=== PATIENT | male | born 1970 | race Caucasian/White ===

== ENCOUNTER 2018-06-18 20:53 | Emergency (ER) | payer SELFPAY ==
[2018-06-18] MEDS ORDERED: LIDOCAINE 1% INJ-PF (10 MG/ML) 30 ML SDV INJ ONE (22:38)
[2018-06-18] MEDS ORDERED: KETOROLAC TROMETHAMINE 60 MG/2 ML SDV IM ONE (22:41)
--- NOTE | 2018-06-18 22:42 | ER Document Report ---
ED Medical Screen (RME) - General Chief Complaint: Leg Swelling Stated Complaint: SWOLLEN SPOT ON LEG Time Seen by Provider: 06/18/18 22:29 Notes: Patient is a 47-year-old male presenting to the emergency department complaining of erythema and swelling noted to the lateral aspect of his distal left lower extremity. Patient states he noticed this on Monday morning states he was scratching at something on his lower leg. States on he presented to an urgent care and was put on Bactrim and mupirocin. States since taking the Bactrim and mupirocin he has not noticed that the redness or irritation has gotten worse but he has noted that it has not gotten better and he has noticed some swelling to the distal aspect of his left lower extremity. Patient states at urgent care they did take a culture of the discharge that was coming from the wound and it grew back MRSA. Patient denies that they did any sort of incision and drain at that time state there was already a small amount of discharge that the provider was able to culture. Physical exam: 6cm x10 cm area of erythema and fluctuance noted to the left distal lateral lower extremity. Small scab noted in the center of the erythema. I have greeted and performed a rapid initial assessment of this patient. A comprehensive ED assessment and evaluation of the patient, analysis of test results and completion of the medical decision making process will be conducted by additional ED providers. TRAVEL OUTSIDE OF THE [place] IN LAST 30 DAYS: No - Related Data Allergies/Adverse Reactions: Shellfish * [Shellfish] Allergy (Mild, Verified 08/29/15 21:21) VOMITING Past Medical History Renal/ Medical History: Reports: Hx Kidney Stones Past Surgical History: Reports: Hx Kidney (Renal Surgery) - kidney stone removed with stent placement to left kidney, Hx Orthopedic Surgery - Immunizations Immunizations up to date: Yes Hx Diphtheria, Pertussis, Tetanus Vaccination: Yes Doctor's Discharge - Discharge Referrals: TRINITY STARR MD [Primary Care Provider] - Follow up as needed
--- NOTE | 2018-06-19 00:25 | ER Document Report ---
ED Extremity Problem, Lower - General Chief Complaint: Leg Swelling Stated Complaint: SWOLLEN SPOT ON LEG Time Seen by Provider: 06/18/18 22:29 Notes: Patient is a 47-year-old male that comes to the emergency department for chief complaint of tender, red, swollen area over the left lower extremity. He states that initially he was scratching his leg, scratched the skin open, the area around it became red, this worsened, he was seen 5 days ago by urgent care , he states they expressed a little bit of purulent discharge from the center, cultured it, this was positive for MRSA, he was placed on Bactrim and Macrobid, no incision/drainage was performed. He denies fever/chills, nausea or vomiting , he is not a diabetic. He denies any other complaints. TRAVEL OUTSIDE OF THE [place] IN LAST 30 DAYS: No - Related Data Allergies/Adverse Reactions: Shellfish * [Shellfish] Allergy (Mild, Verified 08/29/15 21:21) VOMITING Past Medical History - General Information source: Patient - Social History Smoking Status: Never Smoker Chew tobacco use (# tins/day): No Frequency of alcohol use: None Drug Abuse: None Lives with: Family Family History: None Patient has suicidal ideation: No Patient has homicidal ideation: No Renal/ Medical History: Reports: Hx Kidney Stones. Denies: Hx Peritoneal Dialysis Past Surgical History: Reports: Hx Kidney (Renal Surgery) - kidney stone removed with stent placement to left kidney, Hx Orthopedic Surgery - Immunizations Immunizations up to date: Yes Hx Diphtheria, Pertussis, Tetanus Vaccination: Yes Review of Systems - Review of Systems Constitutional: No symptoms reported EENT: No symptoms reported Cardiovascular: No symptoms reported Respiratory: No symptoms reported Gastrointestinal: No symptoms reported Genitourinary: No symptoms reported Male Genitourinary: No symptoms reported Musculoskeletal: See HPI Skin: See HPI Hematologic/Lymphatic: No symptoms reported Neurological/Psychological: No symptoms reported Physical Exam - Vital signs Vitals: Temp Pulse Resp BP Pulse Ox 98.2 F 95 18 148/79 H 98 06/19/18 01:31 06/19/18 01:31 06/19/18 01:31 06/19/18 01:31 06/19/18 01:31 - Notes Notes: GENERAL: Alert, interacts well. No acute distress. HEAD: Normocephalic, atraumatic. EYES: Pupils equal, round, and reactive to light. Extraocular movements intact. ENT: Oral mucosa moist, tongue midline. Oropharynx unremarkable. Airway patent. Nares patent, no nasal septal hematoma, TM's intact. NECK: Full range of motion. Supple. Trachea midline. LUNGS: Clear to auscultation bilaterally, no wheezes, rales, or rhonchi. No respiratory distress. HEART: Regular rate and rhythm. No murmur ABDOMEN: Soft, non-tender. Non-distended. Bowel sounds present in all 4 quadrants. GENITOURINARY: Deferred EXTREMITIES: Left mid lateral tibial area anteriorly with approximately 6 cm of erythematous cellulitis, there is a middle indurated and fluctuant area with a scab over the top. Normal knee, ankle, normal distal neurovascular exam BACK: no cervical, thoracic, lumbar midline tenderness. No saddle anesthesia, normal distal neurovascular exam. NEUROLOGICAL: Alert and oriented x3. Normal speech. [cranial nerves II through XII grossly intact]. PSYCH: Normal affect, normal mood. SKIN: Warm, dry, normal turgor. No rashes or lesions noted. Course - Re-evaluation Re-evalutation: Abscess drain with good purulent drainage, this was deep so packing was placed, discussion of removal and care was given in detail. Giving Keflex along with his Bactrim for cellulitic area. No fever, well-appearing patient, no history of diabetes or the same. Discussed follow-up and return precautions in detail. Patient states understanding and agreement. - Vital Signs Vital signs: Temp Pulse Resp BP Pulse Ox 98.2 F 95 18 148/79 H 98 06/19/18 01:31 06/19/18 01:31 06/19/18 01:31 06/19/18 01:31 06/19/18 01:31 Procedures - Incision and Drainage Left leg Type: Single Anesthetic type: 1% Lidocaine mL's of anesthetic: 8 Blade size: 11 I&D procedure: Shurclens applied, Sterile dressing applied, Other - Regular packing placed Incision Method: Incision made by scalpel Amount/type of drainage: Moderate amount of purulent drainage, minimal bleeding Discharge - Discharge Clinical Impression: Cellulitis and abscess of leg Condition: Stable Disposition: HOME, SELF-CARE Additional Instructions: The abscess has been drained. Treat the surrounding infection (cellulitis) with the Bactrim antibiotic you are currently taking and also the Keflex antibiotics prescribed now. Elevate your leg, keep area clean, removed the packing in 2 days or return for recheck. You can clean the area with soap and water, dab dry, avoid soaking. Return immediately if you worsen including developing or spreading redness, fever of 100.4 or greater, or any other concerning or worsening symptoms. Prescriptions: Cephalexin Monohydrate [Keflex 500 mg Capsule] 500 mg PO QID #28 capsule
[2018-06-19] MEDS ORDERED: LIDOCAINE 1% INJ-PF (10 MG/ML) 30 ML SDV ONE (00:49)
[2018-06-19 01:32] VITALS: BP 148/79
== END 2018-06-19 01:36 | disposition home or self-care (01) ==
LOC: ER 20:53
PROC: 0H9LXZZ Drainage of Left Lower Leg Skin, External Approach (ICD-10-PCS; principal; 2018-06-18)
DX: L03.116 Cellulitis of left lower limb (principal); L02.416 Cutaneous abscess of left lower limb; M79.89 Other specified soft tissue disorders; Z86.14 Personal history of Methicillin resistant Staphylococcus aureus infection
CPT/HCPCS: 99283; 96372; 10060; J1885; J3490